=== PATIENT | female | born 1970 | race Caucasian/White ===

== ENCOUNTER → 2016-10-22 | Outpatient (CLI) | payer BC ==
--- NOTE | 2016-10-22 11:49 | XR ---
EXAMINATION TYPE: XR chest 2V DATE OF EXAM: 10/22/2016 COMPARISON: NONE HISTORY: Cough, R05 TECHNIQUE: Frontal and lateral views of the chest are obtained. FINDINGS: There is no focal air space opacity, pleural effusion, or pneumothorax seen. The cardiac silhouette size is within normal limits. There is a mild spinal curvature. The osseous structures a re intact. IMPRESSION: No acute cardiopulmonary process.
--- NOTE | 2016-10-22 11:51 | XR ---
Thoracic spine HISTORY: Pain 3 views of the thoracic spine There is a mild levoscoliosis centered at approximately T7-T8. Thoracic vertebral bodies show preserv ed height and bone mineralization. Multilevel spondylosis is present. Disc spaces are remarkable for some mild disc height loss at the intervertebral levels of the midthoracic spine. No paraspinal mass. IMPRESSION: Degenerative disc disease, mild scoliosis.
== END | disposition home or self-care (01) ==
LOC: RADXRMAIN 11:02
PROVIDERS: ATTEND Family Medicine
DX: M51.34 Other intervertebral disc degeneration, thoracic region (principal); M41.84 Other forms of scoliosis, thoracic region; R05 Cough
CPT/HCPCS: 71020; 72072

== ENCOUNTER → 2017-10-31 | Outpatient (CLI) | payer BC ==
--- NOTE | 2017-10-31 11:24 | MM ---
Reason for exam: clinical finding. Baseline mammogram. History: Family history of breast cancer in maternal aunt at age 75. Took hormonal contraceptives for 15 years. Indicated problem(s): lump or thickening and pain in the left breast. Physical Findings: Nurse Summary: very small area BB'd to appease patient, RN does not feel or palpate anything unusual (nurse cw). MG 3D Diag Mammo W/Cad EMILE Bilateral CC and MLO view(s) were taken. The breast tissue is heterogeneously dense. This may lower the sensitivity of mammography. There is no discrete abnormality including BB marked area. These results were verbally communicated with the patient and result sheet given to the patient on 10/31/17. ASSESSMENT: Negative, BI-RAD 1 RECOMMENDATION: Routine screening mammogram of both breasts in 1 year. Manage on a clinical basis with regard to palpable.
--- NOTE | 2017-10-31 11:26 | USB ---
Reason for exam: clinical finding. History: Family history of breast cancer in maternal aunt at age 75. Took hormonal contraceptives for 15 years. US Breast LT Left complete breast ultrasound includes all four quadrants, the retroareolar region and axilla. Finding demonstrates a 0.4 x 0.3 x 0.2cm oval, cystic complex lesion at 12 o'clock. These results were verbally communicated with the patient and result sheet given to the patient on 10/31/17. ASSESSMENT: Probably benign, BI-RAD 3 RECOMMENDATION: Ultrasound of the left breast in 6 months. Manage on a clinical basis with regard to palpable region.
== END | disposition home or self-care (01) ==
LOC: RADMAMWWP 07:50
PROVIDERS: ATTEND Family Medicine
DX: N63.20 Unspecified lump in the left breast, unspecified quadrant (principal)
CPT/HCPCS: 77062; 77066

== ENCOUNTER → 2018-08-06 | Outpatient (CLI) | payer BC ==
--- NOTE | 2018-08-06 21:14 | CONS ---
CONSULTATION DATE OF SERVICE: 08/06/2018 47-year-old lady who has [facility] for snoring and significant excessive daytime sleepiness. HISTORY OF PRESENT ILLNESS/SLEEP-WAKE EVALUATION: SLEEP SCHEDULE: Patient usual sleep schedule on working days from 10 to 11 p.m. until 5:00 am and on weekends from 10 to 11 p.m. until 9 a.m. FALLING ASLEEP: No problems with falling asleep, although she reads in the bedroom. DURING SLEEP: Usually sleeps on the back or side position, wake up from sleep once with occasional nocturia. DURING THE DAY/SLEEP WAKE EVALUATION: On the following day, the patient wakes up tired, has difficulties to pay attention, falling asleep during the day, has problems with memory, concentration, irritability and depression. [place] Sleepiness Scale significantly increased to 16, sometimes patient takes naps may see dreams during the naps. She also dreams at night, but she does not remember what part of the night. No history of hypnagogic hallucinations, sleep paralysis or cataplexy. PAST MEDICAL HISTORY: Positive for ADHD, allergy, asthma, depression. 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 MEDICATIONS: Ritalin 5 mg, 2 to 3 times a day, Zyrtec, Prozac, Pulmicort inhaler. SOCIAL HISTORY: Negative for smoking. Alcohol consumption, glass of wine daily. FAMILY HISTORY: Hypertension, hyperlipidemia, stroke, sinus problems, emphysema, anemia, snoring. REVIEW OF SYSTEMS: Snoring and excessive daytime sleepiness. PHYSICAL EXAM: lady without distress, BP 117/82, HR 64, RR 14, height 4 feet 11-1/4 inches, weight 112.2 pounds. Body mass index 22.4, temperature 97.4, oxygen saturation at room air 98%. Oropharynx extremely low position of soft palate. Mallampati 4. Neck 12 7/8 inches in circumference. Deformity of right hand. Neck Supple, no JVD. Thyroid is not palpable. LUNGS Clear to percussion and to auscultation. Good air exchange. No wheezing or rhonchi. HEART S1, S2 regular. No murmurs, gallops, or rubs. ABDOMEN Soft and nontender. Bowel sounds are present. No organomegaly appreciated. EXTREMITIES No clubbing or cyanosis. [employer] Awake, alert, and oriented X3. Cranial nerves 2 to 7 intact. There is no fasciculation or atrophy. noted. No focal deficits observed. IMPRESSION: 1. Snoring, extremely low position of soft palate. Occasional awakenings from sleep, sleepiness. Differential diagnosis include obstructive sleep apnea, but patient has a very small neck and low body mass index. 2. Excessive daytime sleepiness. Del[place] Sleepiness Scale is 16 and this is while patient is on Ritalin up to 3 times a day, but the differential diagnosis includes narcolepsy without cataplexy. 3. History of attention-deficit/hyperactivity disorder, on treatment with Ritalin. 4. History of asthma. 5. History of depression, on treatment with Prozac which may decrease the amount of REM sleep. 6. 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 PLAN: 1. Home sleep apnea test for evaluation of patient's breathing during the sleep. 2. If the home sleep apnea test is negative, polysomnography with the following multiple sleep latency test for objective evaluation of patient's symptoms of excessive daytime sleepiness. The patient should not take her Ritalin during the multiple sleep latency test. 3. Precautions to driving. No driving if feeling sleepiness. 4. Sleep hygiene with regular time in bed for 7.5 to 8 hours. Thank you very much for referring this patient for consultation. Sincerely, Bruce Palencia MD, PhD, FAASM Diplomat of [place] [employer] [place] [employer] [facility] [place] MMODL / МАРИЯ: [id number] /
== END | disposition home or self-care (01) ==
LOC: SLEEP 16:29
PROVIDERS: ATTEND Internal Medicine
DX: G47.10 Hypersomnia, unspecified (principal); R06.83 Snoring; F90.9 Attention-deficit hyperactivity disorder, unspecified type; F32.9 Major depressive disorder, single episode, unspecified; J45.909 Unspecified asthma, uncomplicated; Z98.890 Other specified postprocedural states; Z79.51 Long term (current) use of inhaled steroids; Z79.899 Other long term (current) drug therapy
CPT/HCPCS: 99211

== ENCOUNTER → 2018-12-29 | Outpatient (CLI) | payer BC ==
--- NOTE | 2018-12-30 11:15 | EST ---
EXERCISE STRESS DATE OF SERVICE: 12/29/2018 AGE: 48 SEX: Female HT: 60 WT: 113 PROTOCOL: Kirk STAGE: II DURATION OF EXERCISE: 6 minutes HEART RATE REST: 76 BLOOD PRESSURE REST: 140/103 MAXIMUM HEART RATE ACHIEVED: 165 MAXIMUM BLOOD PRESSURE: 183/108 85% MPHR: 145 100% MPHR: 171 METS: 7.1 INDICATIONS: History of shortness of breath. CLINICAL INFORMATION: Baseline heart rate 76 beats per minute. Baseline blood pressure 140/103 mmHg. Baseline 12-lead ECG showed normal sinus rhythm with normal cardiac intervals. Patient exercised on Kirk protocol for 6 minutes achieving a peak heart rate of 165 beats per minute. Peak blood pressure 183/108 mmHg. The patient was short of breath during stress test. No chest pain. There was no clear-cut evidence of ischemia noted. IMPRESSION: 1. Low average exercise capacity. 2. Diastolic hypertension. 3. No arrhythmias. 4. No clear-cut evidence for ischemia. MMODL / IJN: [id number] /
== END | disposition home or self-care (01) ==
LOC: RADNMMAIN 08:47
PROVIDERS: ATTEND Family Medicine
DX: I10 Essential (primary) hypertension (principal)
CPT/HCPCS: 93017

== ENCOUNTER → 2019-01-28 | Outpatient (CLI) | payer BC ==
--- NOTE | 2019-01-28 09:34 | MM ---
Reason for exam: additional evaluation requested from prior study. Last mammogram was performed 1 year and 3 months ago. History: Family history of breast cancer in maternal aunt at age 75. Took hormonal contraceptives for 15 years. Physical Findings: Nurse Summary: 0.5cm nodule in the right breast at 9 o'clock and a 0.5cm nodule in the left breast at 12-1 o'clock (nurse kp). MG 3D Diag Mammo W/Cad EMILE Bilateral CC and MLO view(s) were taken. Prior study comparison: October 31, 2017, bilateral MG 3d diag mammo w/cad EMILE. The breast tissue is almost entirely fat. There is no discrete abnormality including area of concern. No significant new findings when compared with previous films. These results were verbally communicated with the patient and result sheet given to the patient on 01/28/19. ASSESSMENT: Incomplete: need additional imaging evaluation, BI-RAD 0 RECOMMENDATION: Ultrasound of both breasts.
--- NOTE | 2019-01-28 09:35 | USB ---
Reason for exam: clinical finding. History: Family history of breast cancer in maternal aunt at age 75. Took hormonal contraceptives for 15 years. US Breast Limited BILAT Right limited breast ultrasound including focal area of concern, retroareolar and axilla demonstrates no cystic or solid lesion seen. Left limited breast ultrasound including focal area of concern, retroareolar and axilla demonstrates no cystic or solid lesion seen. These results were verbally communicated with the patient and result sheet given to the patient on 01/28/19. ASSESSMENT: Negative, BI-RAD 1 RECOMMENDATION: Routine screening mammogram of both breasts in 1 year. Manage patient on a clinical basis.
== END | disposition home or self-care (01) ==
LOC: RADMAMWWP 07:31
PROVIDERS: ATTEND Family Medicine
DX: N60.09 Solitary cyst of unspecified breast (principal)
CPT/HCPCS: 77062; 77066

== ENCOUNTER → 2019-03-18 | Outpatient (CLI) | payer BC ==
[2019-03-18 15:21] VITALS: BP 122/85; PULSE 76; RESP 18; TEMP 98
--- NOTE | 2019-03-18 15:49 | P.GSHP ---
History of Present Illness H&P Date: 03/18/19 Chief Complaint: abnormal nurse exam Lizbeth is a 48 year old white female seen in consultation for Dr. Goode regarding nodularity of the breast, she had a routine screening mammogram was noted by the nurse to have some nodularity in the right breast at 9:00 and in the left breast at 12:00 by [facility] nurse. Bilateral mammogram on [id number] did not reveal any discrete abnormalities. Bilateral ultrasounds were performed which likewise did not reveal any discrete abnormalities. The patient herself is not concerned about any new masses lumps or nodules in her breast. She is not complaining of any nipple discharge or skin changes. She is not complaining of any pain in her breast. She has no history of recent trauma or infection of her breast. She does note a new mole on the inferior aspect of the left breast. caffeine: 3 cups of coffee/day nicotene: none chocolate: daily Family History: maternal aunt: breast cancer Hormonal History: menarche: 13 , born at 24, breast fed: no periods irregular BCP: 15 years hormones: none Past Surgical History: 1. right hand 2. left toe 3. Medical History: asthma Social History: smoke: none alcohol: weekly drugs: none - Constitutional Constitutional: Denies chills, Denies fever - EENT Eyes: denies blurred vision, denies pain Ears: deny: decreased hearing, tinnitus Ears, nose, mouth and throat: Denies headache, Denies sore throat - Breasts Breasts: bilateral: as per HPI - Cardiovascular Cardiovascular: Reports shortness of breath, Denies chest pain - Respiratory Comment: asthma - Gastrointestinal Gastrointestinal: Denies abdominal pain, Denies diarrhea, Denies nausea, Denies vomiting - Genitourinary (Female) Genitourinary: Denies dysuria, Denies hematuria - Menstruation Menstruation: Reports menses variable - Musculoskeletal Musculoskeletal: Denies myalgias - Integumentary Integumentary: Denies pruritus, Denies rash - Neurological Neurological: Reports numbness, Denies weakness - Psychiatric Psychiatric: Reports depression, Denies anxiety - Endocrine Endocrine: Reports fatigue, Reports weight change - Hematologic/Lymphatic Comment: none - Allergic/Immunologic Allergic/Immunologic: Reports as per HPI Past Medical History History of Any Multi-Drug Resistant Organisms: None Reported Smoking Status: Never smoker Medications and Allergies Home Medications Medication Instructions Recorded Confirmed Type Budesonide [Pulmicort] 0 mg INHALATION DAILY 03/18/19 03/18/19 History Cetirizine HCl [Zyrtec] 10 mg PO DAILY 03/18/19 03/18/19 History Ergocalciferol (Vitamin D2) 50,000 unit PO QMONTH 03/18/19 03/18/19 History [Vitamin D2] FLUoxetine HCL [PROzac] 20 mg PO DAILY 03/18/19 03/18/19 History Methylphenidate HCl [Ritalin] 5 mg PO BID 03/18/19 03/18/19 History Allergies Allergy/AdvReac Type Severity Reaction Status Date / Time Sulfa (Sulfonamide Allergy Rash/Hives Unverified 03/18/19 15:15 Antibiotics) Surgical - Exam Vital Signs Temp Pulse Resp BP Pulse Ox 98.0 F 76 18 122/85 99 03/18/19 15:18 03/18/19 15:18 03/18/19 15:18 03/18/19 15:18 03/18/19 15:18 BMI 22.1 - General well developed, well nourished, no distress - Eyes normal ocular movement - ENT no hearing loss, no congestion - Respiratory normal expansion, normal respiratory effort, clear to percussion, clear to auscultation - Cardiovascular Rhythm: regular Heart Sounds: normal: S1, S2 - Abdomen Abdomen: soft, non tender, no guarding, no rigid, no rebound - Integumentary normal turgor - Neurologic no disoriented, no combative - Musculoskeletal deformity of hte right hand normal gait, normal posture - Psychiatric oriented to time, oriented to person, oriented to place, speech is normal, memory intact breast exam: BRA 34 B ptosis grade 1/2 Inspection: Nevus inferior aspect of left breast non-worrisome no other skin lesions of concern no nipple inversion Palpation: Right breast: Multi-positional exam no dominant masses or nodules of concern Right axilla: No adenopathy of concern Left breast: Multi-positional exam no dominant masses or nodules of concern Left axilla: No adenopathy of concern Results Mammogram and ultrasound results reviewed Assessment and Plan Assessment: Impression: 1. Fibrocystic breast changes bilateral 2. Nevus left breast non-worrisome 3. family history of breast cancer in a maternal aunts 4. Asthma Plan: 1. We have discussed causes of fibrocystic breast changes patient will consider modifying her lifestyle secondary to the caffeine 2. Nevus in the left breast appears non-worrisome at this time she has opted to follow with dermatology 3. Repeat bilateral mammogram and physician exam in 1 year Cc: Dr. Walls encounter 30 minutes, > 50% of time in planning and counselling Time with Patient: Greater than 30
== END | disposition home or self-care (01) ==
LOC: WWCWWP 14:55
PROVIDERS: ATTEND Surgery
DX: Z53.9 Procedure and treatment not carried out, unspecified reason (principal)

== ENCOUNTER → 2021-03-01 | Outpatient (CLI) | payer OTHER ==
--- NOTE | 2021-03-05 11:33 | MM ---
Reason for exam: screening (asymptomatic). Last mammogram was performed 2 years and 1 month ago. History: Family history of breast cancer in maternal aunt at age 75. Took hormonal contraceptives for 15 years. Physical Findings: A clinical breast exam by your physician is recommended on an annual basis and results should be correlated with mammographic findings. MG 3D Screening Mammo W/Cad Bilateral CC and MLO view(s) were taken. Prior study comparison: January 28, 2019, bilateral MG 3d diag mammo w/cad EMILE. October 31, 2017, bilateral MG 3d diag mammo w/cad EMILE. The breast tissue is heterogeneously dense. This may lower the sensitivity of mammography. Stable regional punctate calcifications on the right. No significant changes when compared with prior studies. ASSESSMENT: Benign, BI-RAD 2 RECOMMENDATION: Routine screening mammogram of both breasts in 1 year.
== END | disposition home or self-care (01) ==
LOC: RADMAMWWP 08:03
PROVIDERS: ATTEND Family Medicine
DX: Z12.31 Encounter for screening mammogram for malignant neoplasm of breast (principal); Z78.0 Asymptomatic menopausal state
CPT/HCPCS: 77063; 77067

== ENCOUNTER → 2023-03-07 | Outpatient (CLI) | payer OTHER ==
--- NOTE | 2023-03-07 20:37 | MM ---
Reason for Exam: Screening (asymptomatic). Last mammogram was performed 2 year(s) and 0 month(s) ago. Patient History: Menarche at age 13. First Full-Term at age 24. Patient used Hormonal Contraceptives for 15 years. Maternal aunt had breast cancer, age 75. Risk Values: Gardenia 5 year model risk: 1.1%. NCI Lifetime model risk: 8.6%. Prior Study Comparison: 10/31/2017 Bilateral Diagnostic Mammogram, [facility]. 01/28/2019 Bilateral Diagnostic Mammogram, [facility]. 03/01/2021 Bilateral Screening Mammogram, [facility]. Tissue Density: The breast tissue is heterogeneously dense. This may lower the sensitivity of mammography. Findings: Analyzed By CAD. There is no suspicious group of microcalcifications or new suspicious mass in either breast. Overall Assessment: Negative, BI-RAD 1 Management: Screening Mammogram of both breasts in 1 year. . Patient should continue monthly self-breast exams. A clinical breast exam by your physician is recommended on an annual basis. This exam should not preclude additional follow-up of suspicious palpable abnormalities. Note on Gardenia scores and lifetime risk: 1. A Gardenia score greater than 3% is considered moderate risk. If this is the case, consider specialist referral to assess eligibility for a risk reducing agent. 2. If overall lifetime risk for the development of breast cancer is 20% or higher, the patient may qualify for future screening with alternating mammogram and breast MRI. Electronically signed and approved by: Nessa Horton M.D. Radiologist
== END | disposition home or self-care (01) ==
LOC: RADMAMWWP 07:18
PROVIDERS: ATTEND Family Medicine
DX: Z12.31 Encounter for screening mammogram for malignant neoplasm of breast (principal); Z80.3 Family history of malignant neoplasm of breast
CPT/HCPCS: 77063; 77067